=== PATIENT | female | born 1985 | race Caucasian/White ===

== ENCOUNTER 2016-10-29 20:50 | Emergency (ER) | payer OTHER ==
[~2016-10-29] VITALS: Ht 162.6 cm; Wt 96.0 kg
[~2016-10-29 20:50] MED LIST: PREN1TAB49 PO
[2016-10-29 20:55] VITALS: Ht 162.6 cm; Wt 96.0 kg
--- NOTE | 2016-10-29 22:48 | ERD ---
ER Documentation Chief Complaint Date/Time DATE: 10/29/16 TIME: 22:36 Chief Complaint states been having sob/hyperventilating/tingling right arm since yesterday HPI 31-year-old female presents here in emergency department for episodes of shortness of breath palpitations, on and off tingling sensation in the right arm and right lower leg started yesterday. Patient states that she started to feel short of breath and his breathing really fast, started to have the symptoms of tingling sensation afterwards. Patient has history of the same type of symptoms before, was told to possibly have panic attack. Patient was never diagnosed of anxiety but she feels very anxious at times. Patient denies any dyspnea on exertion or dyspnea on lying down. Patient denies any dizziness. Patient denies any neck injury. Patient denies any head injury. Patient denies any focal weakness. ROS All systems reviewed and are negative except as per history of present illness. Medications Home Meds Reported Medications Vits W-Ca,Fe,Fa(<1MG) () 1 Tab Tablet, 1 TAB PO DAILY 11/25/11 Allergies Allergies: Coded Allergies: No Known Allergy (Unverified , 10/29/16) PMhx/Soc Medical and Surgical Hx: pt denies Medical Hx, pt denies Surgical Hx Hx Miscellaneous Medical Probl: No (NO MEDICAL OR SURGICAL CONDITIONS) Hx Alcohol Use: Yes (RARELY) Hx Substance Use: No Hx Tobacco Use: No Smoking Status: Never smoker FmHx Family History: No coronary disease, No diabetes, No other Physical Exam Vitals Vital Signs Date Time Temp Pulse Resp B/P Pulse Ox O2 Delivery O2 Flow Rate FiO2 10/29/16 20:55 99.9 106 20 130/75 99 Physical Exam GENERAL: The patient is well developed and appropriate for usual state of health, in no apparent distress. CHEST: Clear to auscultation bilaterally. There are no rales, wheezes or rhonchi. HEART: Regular rate and rhythm. No murmurs, clicks, rubs or gallops. No S3 or S4. ABDOMEN: Soft, nontender and nondistended. Good bowel sounds. No rebound or guarding. No gross peritonitis. No gross organomegaly or masses. No Garner sign or McBurney point tenderness. BACK: No midline or flank tenderness. EXTREMITIES: Equal pulses bilaterally. There is no peripheral clubbing, cyanosis or edema. No focal swelling or erythema. Full range of motion. Grossly neurovascularly intact. NEURO: Alert and oriented. Cranial nerves 2-12 intact. Motor strength in all 4 extremities with 5/5 strength. Sensation grossly intact. Normal speech and gait. SKIN: There is no apparent rash or petechia. The skin is warm and dry. HEMATOLOGIC AND LYMPHATIC: There is no evidence of excessive bruising or lymphedema. No gross cervical, axillary, or inguinal lymphadenopathy. Results 24 hrs Current Medications Medications (Trade) Dose Ordered Sig/Medardo Route PRN Reason Start Time Stop Time Status Last Admin Dose Admin Alprazolam (Xanax) 1 mg ONCE ONCE PO 10/29/16 23:00 10/29/16 23:01 DC Xanax given here in emergency department to help with symptoms. EKG was done, read by me and is normal sinus rhythm at a rate of 96, normal axis , there is no ST changes or changes in the EKG that indicates any cardiac emergencies at this time. Patient's EKG was also reviewed by Dr. William. Impression: no acute findings on EKG PROCEDURE: CHEST - 1 VIEW CLINICAL INDICATION: 31-year-old female with shortness of breath and palpitations. TECHNIQUE: A single frontal AP semi-erect view of the chest was performed portably. The images were reviewed on a PACS workstation. COMPARISON: None. FINDINGS: The cardiomediastinal silhouette has a normal appearance. There is no evidence for an infiltrate. There is no evidence for congestive heart failure. There is no evidence for pneumothorax. The osseous structures are intact. IMPRESSION: No evidence for active cardiopulmonary disease. .Cassius Delarosa MD, Date Time Electronically viewed and signed by .Cassius Delarosa MD, on 10/30/2016 00:47 .M/ CC: NATO DAINE NP Procedures/MDM Medical Decision Making: Patient symptoms nonspecific at this time, can be anxiety, nonspecific palpitations, possibly hyperventilation syndrome also. There is low suspicion for cardiopulmonary emergencies at this time. Patient has low risk factors. EKG is normal, there is no changes in the EKG that indicates cardiac emergencies. Chest X-ray does not show cardiopulmonary emergencies at this time. There is low suspicion for aortic aneurysm, myocardial infarction, pneumothorax, pleural effusion, pulmonary embolism, or any other cardiopulmonary emergencies at this time. Advised to follow-up with senior education specialist for further evaluation, follow-up with primary care doctor in 2-3 days for reevaluation of symptoms. Patient is advised to return to emergency department for any worsening symptoms Departure Diagnosis: Primary Impression: Hyperventilation syndrome Additional Impression: Anxiety Condition: Stable Patient Instructions: Hyperventilation Syndrome, Your Body's Response to Anxiety NATO DIANE NP Oct 29, 2016 22:47
[2016-10-29] MEDS ORDERED: ALPRAZOLAM 0.25 MG TAB PO ONE (23:00)
--- NOTE | 2016-10-30 00:47 | RADRPT ---
PROCEDURE: CHEST - 1 VIEW CLINICAL INDICATION: 31-year-old female with shortness of breath and palpitations. TECHNIQUE: A single frontal AP semi-erect view of the chest was performed portably. The images we re reviewed on a PACS workstation. COMPARISON: None. FINDINGS: The cardiomediastinal silhouette has a normal appearance. There is no evidence for an infiltrate. There is no evidence for congestive heart failure. There is no evidence for pneumothorax. The osseou s structures are intact. IMPRESSION: No evidence for active cardiopulmonary disease. .Cassius Delarosa MD, Date Time Electronically viewed and signed by .Cassius Delarosa MD, on 10/30/2016 00:47 .M/
[2016-10-30] MEDS ORDERED: ALPRAZOLAM 0.25 MG TAB PO ONE (01:00)
[2016-10-30 01:06] VITALS: BP 128/76; PULSE 95; TEMP 99.8
== END 2016-10-30 01:25 | disposition home or self-care (01) ==
LOC: FTE 20:50
DX: R06.4 Hyperventilation (principal); F41.9 Anxiety disorder, unspecified
CPT/HCPCS: 71010; Z7502; Z7610